=== PATIENT | female | born 1985 | race Caucasian/White ===

== ENCOUNTER 2018-01-06 21:48 | Emergency (ER) | payer BC ==
[2018-01-06 22:19] VITALS: RESP 18
[2018-01-06] MEDS ORDERED: HYDROcodone/APAP 5-325MG 1 EACH TAB PO STA (23:34)
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
--- NOTE | 2018-01-06 23:55 | XR ---
EXAMINATION TYPE: XR shoulder complete LT DATE OF EXAM: 01/06/2018 COMPARISON: NONE HISTORY: Shoulder pain TECHNIQUE: 3 views FINDINGS: I see no fracture nor dislocation. Glenohumeral joint is anatomic. Soft tissues appear norm al. IMPRESSION: Negative left shoulder exam.
[2018-01-07] MEDS ORDERED: ACET/COD 300 MG/30 MG STARTER PACK 6 TAB BTL PO STA (00:58)
[2018-01-07] MEDS ORDERED: CYCLOBENZAPRINE 10MG STARTER 3 TAB BTL PO STA (00:58)
[2018-01-07 01:08] VITALS: BP 123/73; PULSE 77; TEMP 97.9
== END 2018-01-07 01:08 | disposition home or self-care (01) ==
LOC: EC 21:48
DX: S46.002A Unspecified injury of muscle(s) and tendon(s) of the rotator cuff of left shoulder, initial encounter (principal); F17.200 Nicotine dependence, unspecified, uncomplicated; Z91.013 Allergy to seafood; Z91.041 Radiographic dye allergy status; X50.1XXA Overexertion from prolonged static or awkward postures, initial encounter; Y93.55 Activity, bike riding
CPT/HCPCS: 99283

== ENCOUNTER 2024-06-06 01:33 | Emergency (ER) | payer BC ==
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
[2024-06-06 05:52] VITALS: BP 135/85; PULSE 106; RESP 17; TEMP 98.1
== END 2024-06-06 05:52 | disposition home or self-care (01) ==
LOC: EC 01:33
DX: T78.40XA Allergy, unspecified, initial encounter (principal); Z87.891 Personal history of nicotine dependence; Z88.0 Allergy status to penicillin; Z88.1 Allergy status to other antibiotic agents; Z91.041 Radiographic dye allergy status; Z91.013 Allergy to seafood
CPT/HCPCS: 93005; 99284